=== PATIENT | female | born 1990 | race Two or more races ===

== ENCOUNTER 2019-04-10 08:32 | Inpatient (IN) | payer MEDICAID ==
[2019-03-31 12:31] LABS: APPEARANCE,URINE CLEAR; BILIRUBIN, URINE NEGATIVE (NEGATIVE); COLOR,URINE PALE YELLOW; GLUCOSE, URINE (UA) NEGATIVE (NEGATIVE); KETONES,URINE NEGATIVE (NEGATIVE); LEUKOCYTE ESTERASE ,URINE 1+ (NEGATIVE); NITRITE,URINE NEGATIVE (NEGATIVE); PH,URINE 5 (4.5-8.0); PROTEIN,URINE NEGATIVE (NEGATIVE); UROBILINOGEN,URINE NORMAL MG/DL (0.0-1.0)
[2019-03-31 13:09] LABS: EOSINOPHILS % (AUTO) 0.8 % (0.0-3.0); HEMOGLOBIN 12.1 G/DL (12.0-16.0); LYMPHOCYTES % (AUTO) 33.8 % (20.0-45.0); MEAN CORPUSCULAR VOLUME 89 FL (80-99); MONOCYTES % (AUTO) 7.8 % (1.0-10.0); NEUTROPHILS % (AUTO) 56.5 % (45.0-75.0); PLATELET COUNT 330 K/UL (150-450); RED BLOOD COUNT 3.91 M/UL (4.20-5.40); RED CELL DISTRIBUTION WIDTH 12.8 % (11.6-14.8); WHITE BLOOD COUNT 7.5 K/UL (4.8-10.8)
[2019-03-31 13:12] LABS: ANION GAP 6 mmol/L (5-15); BLOOD UREA NITROGEN 10 mg/dL (7-18); CALCIUM 8.8 MG/DL (8.5-10.1); CARBON DIOXIDE 29 MMOL/L (21-32); CHLORIDE 106 MMOL/L (98-107); CREATININE 0.6 MG/DL (0.55-1.30); POTASSIUM 3.9 MMOL/L (3.5-5.1); SODIUM 141 MMOL/L (136-145)
[2019-03-31 13:19] LABS: INR 0.9 (0.9-1.1)
--- NOTE | 2019-04-09 16:00 | Pre-op HX & Phy Repo 2 SIG ---
DATE OF ADMISSION: 04/10/2019 DATE OF SURGERY: Scheduled for surgery, 04/10/2019. HISTORY OF PRESENT ILLNESS: The patient is a 28-year-old female in overall good health, who presented in September 2018 with a 6-month history of a left breast mass. Examination at that time revealed a large mass in the lower inner quadrant of the left breast not fixed with palpable axillary lymph nodes and a mass in the superior breast as well. Mammogram revealed multiple masses in the lateral left breast over 12 cm area, the largest was 4 cm. Ultrasound in September revealed multiple suspicious masses in the left side with multiple enlarged axillary lymph nodes. Core biopsy of left breast mass 2 o'clock, 9 cm from the nipple, revealed invasive ductal poorly differentiated carcinoma. Core biopsy of the left breast mass at 4 o'clock, 5 cm from the nipple, also revealed invasive ductal carcinoma, poorly differentiated. Core biopsy of the left axillary lymph node at that time revealed metastatic breast cancer. The patient had no prior history of breast disease and no family history of breast cancer. The cancer was assessed with cancer markers. She was estrogen and progesterone receptor positive and HER2 negative. The patient received neoadjuvant chemotherapy for stage III carcinoma of the breast. Last chemotherapy was March 16, 2019. The previous palpable masses have resolved. The large 6 x 8 cm mass in the lower left breast has become much smaller at 2 cm. There is no palpable lymphadenopathy. Ultrasound has revealed that the left breast mass at 12 o'clock has resolved. The mass at 2 o'clock, 9 cm from the nipple, has decreased in size to 11 mm. Mass at 3 o'clock 7 cm from the nipple has decreased to 10 mm. Mass, which is palpable at 4 to 6 o'clock, 5 cm from the nipple, is now only 3.3 x 1.7 x 0.8 cm. The patient is scheduled to undergo left breast partial mastectomy with preoperative needle localization of the mass at 2 o'clock and 3 o'clock and the resection will include the palpable mass and axillary lymph node dissection. PAST MEDICAL HISTORY: There is no prior history of breast disease. FAMILY HISTORY: No family history of breast cancer. MEDICATIONS: Omeprazole, Compazine, Zofran. ALLERGIES: None. OPERATIONS: None other than placement of infusion port. REVIEW OF SYSTEMS: 1, para 1. The patient has regular menstrual periods. PHYSICAL EXAMINATION: GENERAL: The patient is 5 feet tall, 143 pounds. VITAL SIGNS: Within normal limits. HEENT: Within normal limits. LUNGS: Clear. HEART: Regular rhythm. BREASTS: Right breast, unremarkable. Left breast, there is a palpable mass at the inferior breast clinically measuring approximately 2 centimeters adjacent to the areolar border between 4 and 6 o'clock. LYMPHATICS: There is no palpable axillary or supraclavicular lymphadenopathy. ABDOMEN: Soft. PELVIC: Per primary care. RECTAL: Per primary care. EXTREMITIES: Without edema. NEUROLOGIC: Physiologic. IMPRESSION: Multicentric left breast invasive ductal carcinoma, poorly differentiated, ER/SC positive, HER2 negative, metastatic to axillary lymph nodes, status post neoadjuvant chemotherapy. PLAN: Left breast partial mastectomy with preoperative needle localization x2 and left axillary lymph node dissection. I have had a full discussion with the patient regarding the nature of her condition, the nature of the surgery, indications, alternatives, options, and risks including bleeding, infection, distortion and scarring involving breast and nipple, need for additional surgery or treatments based on final pathology, neuritis or neuralgia, etc. All questions have been answered. The patient understands and agrees to proceed. Dieter Salazar M.D. DR: DANIEL JOB#: [id number] CC:
[~2019-04-10] VITALS: Ht 152.4 cm; Wt 64.4 kg
[2019-04-10] VITALS (14 sets, daily range): BP systolic 90–112; BP diastolic 52–67
[~2019-04-10 08:32] MED LIST: OMEPRAZOLE10 M1 ORAL
--- NOTE | 2019-04-10 10:39 | Pre-Procedure Note/Attestation ---
Pre-Procedure Note/Attestation Complete Prior to Procedure Planned Procedure: left Procedure Narrative: left breast partial mastectomy with pre-op needle localization and left axillary lymph node dissection Indications for Procedure Pre-Operative Diagnosis: multifocal invasive ductal carcinoma left breast Attestation I attest that I discussed the nature of the procedure; its benefits; risks and complications; and alternatives (and the risks and benefits of such alternatives ), prior to the procedure, with the patient (or the patient's legal passenger service representative). I attest that, if there was a reasonable possibility of needing a blood transfusion, the patient (or the patient's legal passenger service representative) was given the [facility] standardized written summary, pursuant to the Georges Jade Blood Safety Act ([place] Health and Safety Code # 1645, as amended). I attest that I re-evaluated the patient just prior to the surgery and that there has been no change in the patient's H&P, except as documented below: none Dieter Salazar MD Apr 10, 2019 10:39
[2019-04-10] MEDS ORDERED: fentaNYL 100 mcg/2 mL IV ONE (11:57)
[2019-04-10] MEDS ORDERED: Midazolam 2mg/2ml Inj ONE (11:57)
[2019-04-10] MEDS ORDERED: Lidocaine 1% MPF 10mg/ml 5ml ONE (11:59)
[2019-04-10] MEDS ORDERED: Propofol 200mg/20ml IV ONE (11:59)
[2019-04-10] MEDS ORDERED: Ketorolac 30mg Inj ONE (11:59)
[2019-04-10] MEDS ORDERED: Bupivacaine w/Epi 0.5% 30ml Vial INJ ONE (12:26)
[2019-04-10] MEDS ORDERED: Sterile Water Irrig 1000ml IRRIG ONE (12:30)
[2019-04-10] MEDS ORDERED: NS Irrig 1000ml ONE (12:30)
[2019-04-10] MEDS ORDERED: LR 1000ml ONE (12:30)
[2019-04-10] MEDS ORDERED: Bacitracin 50000 Units Vial ONE (12:32)
--- NOTE | 2019-04-10 12:54 | Anethesia Preoperative Eval ---
Anesthesia Pre-op PMH/ROS General Date of Evaluation: Apr 10, 2019 Time of Evaluation: 12:22 Anesthesiologist: Madi ASA Score: ASA 2 Mallampati Score Class I : Soft palate, uvula, fauces, pillars visible Class II: Soft palate, uvula, fauces visible Class III: Soft palate, base of uvula visible Class IV: Only hard plate visible Mallampati Classification: Class II Surgeon: Marie Diagnosis: L breast CA Surgical Procedure: Partal mastectomy Anesthesia History: none Family History: no anesthesia problems Allergies: Coded Allergies: No Known Allergies (Unverified , 04/10/19) Medications: see eMAR Patient NPO?: Yes NPO Date: Apr 09, 2019 NPO Time: 1999 Past Medical History Cardiovascular: Denies: HTN, CAD, [place], valve dz, arrhythmia, other Pulmonary: Denies: asthma, COPD, HUONG, other Gastrointestinal/Genitourinary: Reports: GERD; Denies: CRI, ESRD, other Neurologic/Psychiatric: Reports: depression/anxiety; Denies: dementia, CVA, TIA, other Endocrine: Denies: DM, hypothyroidism, steroids, other HEENT: Denies: cataract (L), cataract (R), glaucoma, K[place] (L), [place] (R), other Hematology/Immune: Reports: anemia - mild; Denies: DVT, bleeding disorder, other Musculoskeletal/Integumentary: Denies: OA, RA, DJD, DDD, edema, other PMH Narrative: as above PSxH Narrative: Portacath placement Anesthesia Pre-op Phys. Exam Physician Exam Last Vital Signs Date Time Temp Pulse Resp B/P (MAP) Pulse Ox O2 Delivery O2 Flow Rate FiO2 04/10/19 09:17 97.4 60 18 112/59 (76) 100 04/10/19 09:16 Room Air Constitutional: NAD Neurologic: CN 2-12 intact Cardiovascular: RRR, no M/R/G Respiratory: CTA Gastrointestinal: S/NT/ND Airway Exam Mallampati Score: Class II MO: full Neck: flexible ROM: full Teeth: intact Dentures: no upper, no lower Anesthesia Pre-op A/P Labs see chart Urine Test Test 04/10/19 08:50 Urine HCG, Qualitative Negative (NEGATIVE) Risk Assessment & Plan Assessment: ASA 2 Plan: GA with LMA POINV prevention Status Change Before Surgery: No Pre-Antibiotics Drug: Ancef 1gr Given Within 1 Hr of Incision: Yes Time Given: 12:53 Neal Barraza MD Apr 10, 2019 12:54
[2019-04-10] MEDS ORDERED: Morphine Sulfate 10mg/ml Inj ONE (13:08)
[2019-04-10] MEDS ORDERED: Sodium Chloride 10ml vial INJ ONE (13:09)
[2019-04-10] MEDS ORDERED: LR 1000ml 1,000 ML IVLG SCH (13:11)
[2019-04-10] MEDS ORDERED: Midazolam 2mg/2ml Inj IVP PRN (13:15)
[2019-04-10] MEDS ORDERED: Ketorolac 30mg Inj IV PRN (13:15)
[2019-04-10] MEDS ORDERED: DiphenhydrAMINE 50mg/ml Inj IVP PRN (13:15)
[2019-04-10] MEDS ORDERED: Metoclopramide 10mg/2ml Inj IVP PRN (13:15)
[2019-04-10] MEDS ORDERED: Meperidine 25mg/0.5ml Inj (FOR RIGORS ONLY) IM PRN (13:15)
--- NOTE | 2019-04-10 14:36 | Immediate Post-Op Evaluation ---
Immediate Post-Op Evalulation Immediate Post-Op Evalulation Procedure: L breast partial mastectomy with axillary l/n dissection Date of Evaluation: Apr 10, 2019 Time of Evaluation: 14:35 IV Fluids: 1200 Blood Products: none Estimated Blood Loss: <50 Urinary Output: none Blood Pressure Systolic: 104 Blood Pressure Diastolic: 56 Pulse Rate: 72 Respiratory Rate: 20 O2 Sat by Pulse Oximetry: 99 Temperature (Fahrenheit): 97.6 Pain Score (1-10): 1 Nausea: No Vomiting: No Complications none Patient Status: reacts, patent, none Hydration Status: adequate Neal Barraza MD Apr 10, 2019 14:36
--- NOTE | 2019-04-10 14:38 | Brief Operative Note ---
Immediate Post Operative Note Operative Note Pre-op Diagnosis: multifocal invasive ductal carcinoma left breast Procedure: left breast partial mastectomy with pre-op needle localization and left axillary lymph node dissection Post-op Diagnosis: same Post-op Diagnosis: same as pre-op Findings: consistent w/pre-op dx studies Surgeon: keira Anesthesiologist: delicia Anesthesia: general Specimen: yes - left breast cancers, left axillary lymph nodes Complications: none Condition: stable Fluids: see anesthesia record Estimated Blood Loss: minimal Drains: GRECIA Implant(s) used?: No Dieter Salazar MD Apr 10, 2019 14:38
[2019-04-10] MEDS ORDERED: DiphenhydrAMINE 25mg Tab ORAL PRN (14:45)
[2019-04-10] MEDS ORDERED: HYDROcodone/Acetamin 5/325 tab ORAL PRN (14:45)
--- NOTE | 2019-04-10 16:00 | NUR ---
NURSE NOTES: Patient arrived to unit at 1550 via bed accompanied by RN. Patient is asleep but arousable to voice on arrival, no acute distress noted, reporting no pain at this time. Received report from Kemi PENA. SCD's in place, right hand IV intact, patent. Left side GRECIA's compressed. Patient oriented to room. Side rails upx3, bed low and locked, call light within reach.
[2019-04-10] MEDS: D5 1/2NS w/KCl 20mEq 1,000 ML IV SCH (17:07)
--- NOTE | 2019-04-10 17:37 | 48 Hour Post Anesthesia Eval ---
Post Anesthesia Evaluation Procedure: L breast partial mastectomy with axillary l/n dissection Date of Evaluation: Apr 10, 2019 Time of Evaluation: 17:37 Blood Pressure Systolic: 98 0: 63 Pulse Rate: 60 Respiratory Rate: 14 O2 Sat by Pulse Oximetry: 98 Airway: patent Nausea: No Vomiting: No Hydration Status: adequate Cardiopulmonary Status: stable Mental Status/LOC: patient returned to baseline Follow-up Care/Observations: na Post-Anesthesia Complications: none Follow-up care needed: N/A Madina Vanegas CRNA Apr 10, 2019 17:37
[2019-04-10] MEDS: HYDROmorphone 1mg/ml Carpuject SUBQ PRN (18:35)
--- NOTE | 2019-04-10 18:45 | Operative Note - Dictated ---
DATE OF OPERATION: 04/10/2019 SURGEON: Dieter Salazar M.D. COMPUTING SERVICES DIRECTOR: None. ANESTHESIOLOGIST: Neal Barraza M.D. TYPE OF ANESTHESIA: General. PREOPERATIVE DIAGNOSIS: Left breast multifocal invasive ductal carcinoma. POSTOPERATIVE DIAGNOSIS: Left breast multifocal invasive ductal carcinoma. OPERATION PERFORMED: Left breast partial mastectomy with preoperative needle localization and left axillary lymph node dissection. INDICATIONS: The patient presented in September 2018 with multifocal large masses of left breast biopsy invasive ductal carcinoma, poorly differentiated; estrogen, progesterone receptor positive; HER2 negative with metastatic cancer to the left axillary lymph node. The patient received neoadjuvant chemotherapy with marked decrease in size of the breast lesions, one of which resolved. DESCRIPTION OF PROCEDURE: The patient was taken to the operating room and under general anesthesia with sequential compression device stockings in place, she was prepped and draped in the usual fashion. She had two lesions in the outer left breast, one located at 2 o'clock, 9 cm from the nipple and the other at 3 o'clock, 7 cm from the nipple. There was a palpable mass at 4 o'clock, approximately 5 cm from the nipple. A curvilinear circumareolar incision was made in the lower sector, then extending laterally to the periphery of the breast. Flaps were dissected circumferentially. A wide resection was performed down to the chest wall, encompassing all three lesions and one specimen. The specimen was oriented with sutures, anterior, medial, and superior and given to pathology who felt the margins were close and the medial mass at the posterior margin and the inferior margins of the other masses. Additional margin was taken in these areas. Hemostasis was carefully achieved with cautery. The field was irrigated with water and antibiotic. Continue the extensive dissection. I felt a drain was required, which was placed lateral to the breast, a large flat Reji-Friedman drain. Breast incision was closed with 3-0 Vicryl deep dermal subcutaneous continuous sutures. The skin was closed at the circumareolar incision with 4-0 Monocryl and the lateral extension closed with myke. The axillary incision was made achieving hemostasis with cautery and incising the clavipectoral fascia. Lower level dissection was performed with lymph nodes confirmed by pathology. The field was irrigated and hemostasis secured. The dissection was performed using the Thunderbeat electrosurgical device. Through a stab incision inferolaterally, a large flat Reji-Friedman used Friedman drain was placed into the axilla and sutured to the skin with 2-0 nylon as was the breast drain. The clavipectoral fascia was closed with 3-0 Vicryl. Rafa's fascia closed with 3-0 Vicryl and the skin closed with continuous 4-0 Monocryl subcuticular suture. Mastisol and half-inch Steri-Strips were applied followed by dry sterile dressings to both incisions. Final sponge, needle counts were correct. Postoperative surgical brassiere was applied. The patient tolerated the procedure well and left the operating room in stable condition. Dieter Salazar M.D. DR: RAFAEL JOB#: [id number] CC:
--- NOTE | 2019-04-10 19:40 | NUR ---
HAND-OFF: Report given to Caitlin PENA.
--- NOTE | 2019-04-10 19:49 | NUR ---
NURSE NOTES: Patient in bed, awake and alert. Had 1 episode of vomiting. Zofran given by AM shift, so administered PRN Compazine as ordered. Mother at bedside. IVF running as ordered. Left GRECIA drains noted. Bed locked and in lowest position. Call light in reach. Will continue to monitor the patient.
[2019-04-10] MEDS: ceFAZolin sod 1 GM in D5W 55 ML IV SCH (20:14)
[2019-04-11] VITALS (7 sets, daily range): BP systolic 93–113; BP diastolic 55–72
[2019-04-11] MEDS: ceFAZolin sod 1 GM in D5W 55 ML IV SCH (04:13)
[2019-04-11] MEDS: D5 1/2NS w/KCl 20mEq 1,000 ML IV SCH ×3 (06:28→19:30)
--- NOTE | 2019-04-11 07:30 | NUR ---
NURSE NOTES: RECEIVED PATIENT A/A/OX4, MONEGASQUE SPEAKING, ABLE TO FOLLOW SIMPLE COMMANDS. NO C/O PAIN/DISCOMFORT. ON O2 2L VIA NC. IV ACCESS PATENT AND INTACT WITH IVF RUNNING WELL. PORTACATH ON RIGH UPPER CHEST DRY, CLEAN AND INTACT. SCD'S APPLIED. SURGICAL DRSG INTACT AND DRY. BED IS IN THE LOWEST POSITION. SIDERAILS ARE UP X2, BED ALARM ENGAGED AND LOCK. CALL LIGHT IS WITHIN REACH. WILL CONT TO MONITOR.
--- NOTE | 2019-04-11 07:38 | NUR ---
HAND-OFF: Report given to STARR Singletary.
--- NOTE | 2019-04-11 09:01 | NUR ---
NURSE NOTES: Instructed to utilize IS 10xw/a. able to return demonstrate. will cont to monitor.
[2019-04-11] MEDS ORDERED: TransDerm Scop 1.5mg/72HR Patch TDERMAL SCH (09:15)
--- NOTE | 2019-04-11 09:19 | General Progress Note ---
Progress Note Progress Note AVSS Nausea despite Zofran and Compazine. Required dilaudid SQ and [place] for pain Left breast and axilla incisions clean with intact steristrips GRECIA drains x 2: 5cc + 25cc Imp: Nausea and emesis Plan: continue IV fluids until able to eat add scopolamine patch ambulate and teach patient care of GRECIA drains Dieter Salazar MD Apr 11, 2019 09:19
--- NOTE | 2019-04-11 10:59 | NUR ---
NURSE NOTES: patient ambulates on the hallway with no acute resp distress noted. will cont to monitor.
[2019-04-11] MEDS: HYDROmorphone 1mg/ml Carpuject SUBQ PRN (13:14)
--- NOTE | 2019-04-11 18:31 | NUR ---
NURSE NOTES: patient educated on how to empty and care for GRECIA drains. patient encouraged to ambulate this pm and kept refusing. Made Margie KNIGHT informed. Utilizes IS as directed. Tolerating food intake well. will cont to monitor.
--- NOTE | 2019-04-11 19:09 | NUR ---
CASE MANAGEMENT: INITIAL REVIEW 28 YO F PRESENTED TO OUR ED FROM HOME CC: left breast mass PMHx: GASTRITIS. SI:multifocal invasive ductal carcinoma left breast T 97.4 HR 60 RR 18 B/P 112/59 SATS 100% ON RA WNL IS: IVF @ 100 mL/HR PATIENT ADMITTED TO MED/SURG 04/10/2019 @ 1431 DCP: PATIENT TO BE DISCHARGED TO HOME ONCE MEDICALLY CLEARED. PLAN OF CARE: PREOPERATIVE DIAGNOSIS: Left breast multifocal invasive ductal carcinoma. POSTOPERATIVE DIAGNOSIS: Left breast multifocal invasive ductal carcinoma. OPERATION PERFORMED: Left breast partial mastectomy with preoperative needle localization and left axillary lymph node dissection.
--- NOTE | 2019-04-11 19:21 | NUR ---
HAND-OFF: Report given to Mary Ann.
--- NOTE | 2019-04-11 20:21 | NUR ---
nurse's notes: received patient awake, alert and oriented; Irish speaking only; denies any pain or any distress; HL on the right hand unflushable; changed to RFA G#20; IVF restarted; bed on low position; call light and personal possessions within reach; plan of care to be continued this shift; will continue to monitor.
[2019-04-12] MEDS: HYDROmorphone 1mg/ml Carpuject SUBQ PRN (03:25)
[2019-04-12 04:00] VITALS: BP 84/53
[2019-04-12] MEDS: D5 1/2NS w/KCl 20mEq 1,000 ML IV SCH (05:41)
[2019-04-12 05:46] VITALS: BP 91/58
--- NOTE | 2019-04-12 05:46 | NUR ---
nurse's notes: no incidents of falls, injuries or trauma reported as of this time; pain managed well with ordered medication with good results; VSS; dressing over surgical site remains clean, dry and intact; no other complaints of SOB, N/V or any distress; no significant changes noted; will continue to monitor until all set goals are met by day of discharge.
--- NOTE | 2019-04-12 05:52 | NUR ---
nurse's notes: output for GRECIA drains are as follows: GRECIA#1 5 ml serosanguineous; GRECIA #2 10 ml also serosanguineous.
--- NOTE | 2019-04-12 08:00 | NUR ---
NURSE NOTES: RECEIVED PATIENT A/A/OX4 IN BED, ROMANSH SPEAKING, ABLE TO FOLLOW SIMPLE COMMANDS AND VERBALIZE NEEDS. NO C/O PAIN/DISCOMFORT. HAD GONE TO THE BATHROOM DURING DONITA X2. ON RA. IV ACCESS PATENT AND INTACT. TOELRATING FOOD INTAKE. PORTACATH ON RIGH UPPER CHEST DRY, CLEAN AND INTACT. SURGICAL DRSG ON LEFT BREAST DRY, CLEAN AND INTACT WITH JPS'. SCD'S APPLIED. BED IS IN THE LOWEST POSITION. SIDERAILS ARE UP X2, BED ALARM ENGAGED AND LOCK. CALL LIGHT IS WITHIN REACH. WILL CONT TO MONITOR.
[2019-04-12 08:04] VITALS: BP 95/60
--- NOTE | 2019-04-12 10:41 | General Progress Note ---
Progress Note Progress Note AVSS Nausea resolved. Doing well. Left breast and axilla healing nicely GRECIA overnight : axilla 5cc; breast 20cc serosang Imp: improved Plan: discharge with Rx [place] 5/325 #30 instructions/limitations/supplies discussed with ammonium nitrate neutralizer and provided f/u 04/16 office Dieter Salazar MD Apr 12, 2019 10:41
[2019-04-12] MEDS ORDERED: NORCO 5-325 TA1 EACH ORAL (10:59)
--- NOTE | 2019-04-12 11:48 | NUR ---
NURSE NOTES: PATIENT AMBULATES WITH STEADY GAIT. DR REY WAS PRESENT AND CHANGED DRSG ON LEFT BREAST WITH 4X4 AND SECURED WITH PAPERTAPE AND SURGICAL BRASSIERE. ABLE TO MOVE BM. AMBULATE ON THE HALLWAY. TOLERATING FOOD INTAKE. FOR DISCHARGE HOME. INSTRUCTIONS GIVEN. VERIFIED HOME ADDRESS. PERSONAL BELONGINGS NOTED S/T/I. CALLED [place], FATHER IN LAW TO PROVIDE TRANSPORTATION FOR PATIENT. PATIENT WILL HAVE LUNCH BEFORE D/C. WILL CONT TO MONITOR.
[2019-04-12 12:00] VITALS: BP 101/61
--- NOTE | 2019-04-12 13:37 | NUR ---
NURSE NOTES: DISCHARGED HOME. IV HEPLOCK REMOVED. IN STABLE CONDITION. PERSONAL BELONGINGS NOTED. PICKED UP BY [facility].
--- NOTE | 2019-04-14 07:23 | Discharge Summary ---
Discharge Summary Hospital Course Date of Admission Apr 10, 2019 at 16:06 Date of Discharge Apr 12, 2019 at 13:32 Admitting Diagnosis Left breast multifocal invasive ductal carcinoma. Reason for Hospitalization: Elective surgery MINH Bliss is a 28 year old female who was admitted on Apr 10, 2019 at 16: 06 for Left breast multifocal invasive ductal carcinoma. Patient was admitted for elective surgery. Procedures s/p 04/10/[address] Salazar Left breast partial mastectomy with preoperative needle localization and left axillary lymph node dissection. Hospital Course status post surgery course of recovery uneventful initially IV fluids s/p perioperative antibiotics Left breast and axilla incisions clean with intact steri-strips patient had 2 GRECIA drains, output was closely monitored pain management was addressed pain was controlled remained hemodynamically stable patient initially demonstrated intractable nausea and vomiting Zofran and Compazine administered. Scopolamine patch added for additional control GI prophylaxis with a PPI provided nausea and vomiting resolved patient slowly started on diet as tolerated patient was able to tolerate diet IV fluids discontinued ambulated voided freely bowel regimen instituted patient was stable for discharge patient was discharged with prescription for [place] 5/325 #30 instructions/limitations/supplies discussed with design engineering specialist and provided patient to follow-up in the office 04/16 FINAL DIAGNOSES Left breast multifocal invasive ductal carcinoma Left breast partial mastectomy with preoperative needle localization and left axillary lymph node dissection Nausea and vomiting -resolved Discharge Medications Continued Medications: Hydrocodone Bit/Acetaminophen 5-325* ([place] 5-325*) 1 Each Tablet 1 TAB ORAL Q4H PRN for For Pain, #30 TAB 0 Refills (This prescription has been renewed) Omeprazole (Omeprazole) 10 Mg Capsule.dr 10 MG ORAL DAILY for GASTRITIS, #30 CAP 0 Refills (This prescription has been renewed) Discharge Condition Upon Discharge: stable Discharge Vital Signs Last Vital Signs Date Time Temp Pulse Resp B/P (MAP) Pulse Ox O2 Delivery O2 Flow Rate FiO2 04/12/19 12:00 97.9 64 20 101/61 (74) 96 04/12/19 09:00 Room Air 04/10/19 20:41 2.0 Discharge Disposition Patient was discharged home. Discharge Instructions Discharge Instructions Special Instructions I have been assigned to complete a D/C Summary on this account. I was not involved in the patient management Fadumo Braswell NP Apr 14, 2019 07:23
== END 2019-04-12 13:32 | disposition home or self-care (01) | DRG 363 ==
LOC: SUR 08:32 → 3E 16:06
PROC: 07T60ZZ Resection of Left Axillary Lymphatic, Open Approach (ICD-10-PCS; 2019-04-10)
PROC: 0HBU0ZZ Excision of Left Breast, Open Approach (ICD-10-PCS; principal; 2019-04-10 12:00)
DX: C50.812 Malignant neoplasm of overlapping sites of left female breast (principal); C77.3 Secondary and unspecified malignant neoplasm of axilla and upper limb lymph nodes; Z17.0 Estrogen receptor positive status [ER+]
CPT/HCPCS: 36415; 80048; 81003; 81025; 85025; 85610; 85730; 87081; 93005; 94003; 94150; J2250; J2405